=== PATIENT | female | born 1985 | race Two or more races ===

== ENCOUNTER 2016-08-28 23:49 | Inpatient (IN) | payer OTHER, MEDICAID ==
[~2016-08-28 23:49] MED LIST: HYDR-3533 PO; NAPR-576 PO; TRAM50TA PO
[2016-08-28 23:55] VITALS: O2SAT 100
[2016-08-28] MEDS ORDERED: PROPOFOL 1000 MG/100 ML INJ 100 ML ONE (23:56)
[2016-08-29] VITALS (17 sets, daily range): BP systolic 99–141; BP diastolic 56–87; PULSE 92–131; RESP 16–19; TEMP 97.2–99.8; O2SAT 95–100
[2016-08-29] MEDS ORDERED: ceFAZolin 2 GM PREMIX 50 ML IV STA (00:15)
[2016-08-29 00:17] LABS: I-STAT POTASSIUM 3.4 MMOL/L (3.5-4.9)
[2016-08-29] MEDS ORDERED: DIPHTH/TETANUS/ACEL PERTUSSIS (BOOSTER) 0.5 ML VIAL/PFS IM ONE (00:17)
[2016-08-29] MEDS: SODIUM CHLOR 0.9% 1000 ML INJ 1,000 ML IV SCH ×2 (00:18→12:06)
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
[2016-08-29] MEDS ORDERED: ONDANSETRON HCL 4 MG/2 ML VIAL IV PRN ×2 (00:30→10:00)
[2016-08-29] MEDS ORDERED: Post-op Orders (for Pharmacy) MISC XX ONE (00:30)
[2016-08-29] MEDS ORDERED: NALOXONE HCL 0.4 MG/ML AMP IV PRN (00:30)
[2016-08-29] MEDS ORDERED: SODIUM CHLORIDE 0.9% FLUSH 5 ML FLUSH IVF PRN (00:30)
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
[2016-08-29 00:33] LABS: AUTOMATED NEUTROPHIL # 8.4 TH/MM3 (1.8-7.7); BASOPHIL % 0.3 % (0.0-2.0); EOSINOPHIL # 0.1 TH/MM3 (0-0.4); EOSINOPHIL % 0.7 % (0.0-4.0); HEMATOCRIT 34.2 % (35.0-46.0); HEMO FLAGS DIFF FINAL; INTERNATIONAL NORMALIZED RATIO 0.9 RATIO; LYMPH % 32.4 % (9.0-44.0); LYMPHOCYTE # 4.4 TH/MM3 (1.0-4.8); MEAN CELL VOLUME 93.9 FL (80.0-100.0); MEAN CORPUSCULAR HEMOGLOBIN 31.5 PG (27.0-34.0); MEAN CORPUSCULAR HGB CONC 33.5 % (32.0-36.0); MONO % 4.8 % (0.0-8.0); NEUT % 61.8 % (16.0-70.0); PLATELET COUNT 275 TH/MM3 (150-450); RED BLOOD COUNT 3.65 MIL/MM3 (4.00-5.30); RED CELL DISTRIBUTION WIDTH 13.3 % (11.6-17.2); WHITE BLOOD COUNT 13.5 TH/MM3 (4.0-11.0)
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
[2016-08-29 00:35] LABS: APTT (PATIENT) 18.5 SEC (24.3-30.1)
[2016-08-29] MEDS ORDERED: IOHEXOL 350 MG/ML 10 ML VIAL (for RAD DIAG) IV ONE (00:35)
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
[2016-08-29] MEDS ORDERED: ETOMIDATE 20 MG/10 ML VIAL ONE (00:55)
[2016-08-29] MEDS ORDERED: SUCCINYLCHOLINE CHLORIDE 200 MG/10 ML VIAL ONE (00:55)
[2016-08-29] MEDS ORDERED: ROCURONIUM INJ 50 MG/5 ML VIAL ONE ×2 (00:55→01:47)
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
[2016-08-29] MEDS ORDERED: PANTOPRAZOLE SODIUM 40 MG VIAL IV SCH (01:00)
[2016-08-29] MEDS ORDERED: ROCURONIUM INJ 50 MG/5 ML VIAL IV PUSH ONE (01:45)
[2016-08-29 01:57] LABS: BLOOD GAS BASE EXCESS -7.1 mmol/L (-2-2); BLOOD GAS CARBOXYHEMOGLOBIN 1.2 % (0-4); BLOOD GAS HCO3 18 mmol/L (22-26); BLOOD GAS METHEMOGLOBIN 1.2 % (0-2); BLOOD GAS O2 HGB SATURATION 97 % (90-100); BLOOD GAS PCO2 38 mmHg (38-42); BLOOD GAS PO2 249 mmHg (61-120); BLOOD GAS TOTAL HGB 12.1 G/DL (12.0-16.0); CRITICAL VALUE NO; DRAW SITE RT RADIAL; FIO2 50 %; NUMBER OF ARTERIAL PUNCTURES 1; OXYGEN DEVICE VENTILATOR; STAT NO; TEMP CORR TO 98.6; ULNAR PULSE PRESENT; VENT SETTINGS AC16/500/5PEEP
[2016-08-29] MEDS ORDERED: MIDAZOLAM HCL 5 MG/ML VIAL (1 ML) ONE (02:37)
[2016-08-29] MEDS ORDERED: MIDAZOLAM HCL 5 MG/ML VIAL (1 ML) IV ONE (02:45)
[2016-08-29] MEDS: PROPOFOL 1000 MG/100 ML INJ 100 ML IV SCH ×2 (03:16→08:02)
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
[2016-08-29] MEDS ORDERED: CHLORHEXIDINE 0.12% (ORAL KIT) 15 ML CUP MT SCH ×2 (08:00→20:00)
[2016-08-29] MEDS ORDERED: POTASSIUM CHLOR 20 MEQ PREMIX 100 ML IV PRN ×2 (08:30)
[2016-08-29] MEDS ORDERED: POTASSIUM CHLOR 40 MEQ PREMIX 100 ML IV PRN ×2 (08:30→10:00)
[2016-08-29] MEDS ORDERED: SODIUM CHLORIDE 0.9% FLUSH 5 ML FLUSH IV FLUSH PRN (08:30)
[2016-08-29] MEDS ORDERED: POTASSIUM CL 40 MEQ/30 ML LIQ UDC PO/TUBE PRN ×2 (08:30)
[2016-08-29] MEDS ORDERED: SODIUM PHOSPHATE INJ 30 MMOL in SODIUM CHLOR 0.9% 250 ML INJ 240 ML IV PRN (08:30)
[2016-08-29] MEDS ORDERED: POTASSIUM PHOSPHATE INJ 30 MMOL in SODIUM CHLOR 0.9% 250 ML INJ 250 ML IV PRN (08:30)
[2016-08-29] MEDS ORDERED: POTASSIUM PHOSPHATE MONOBASIC 500 MG TAB PO/TUBE PRN (08:30)
[2016-08-29] MEDS ORDERED: MAGNESIUM SULFATE INJ 2 GM in SODIUM CHLORIDE 0.9% INJ 96 ML IV PRN (08:30)
[2016-08-29] MEDS ORDERED: POTASSIUM PHOSPHATE MONOBASIC 500 MG TAB PO PRN (08:30)
[2016-08-29] MEDS ORDERED: RESP: ALBUTEROL 2.5 MG/IPRATROPIUM 0.5 MG NEB (PRN) INH (08:30)
[2016-08-29] MEDS ORDERED: MISCELLANEOUS NURSING INFORMATION XX SCH (08:30)
[2016-08-29] MEDS ORDERED: CHLORHEXIDINE GLUCONATE 2 % 1 PACK (2 CLOTHS) TOP PRN (08:30)
[2016-08-29] MEDS ORDERED: MAGNESIUM SULFATE INJ 4 GM in SODIUM CHLORIDE 0.9% INJ 92 ML IV PRN (08:30)
[2016-08-29] MEDS ORDERED: MAGNESIUM OXIDE 400 MG TAB PO PRN (08:30)
[2016-08-29] MEDS ORDERED: SODIUM CHLORIDE 0.9% FLUSH 5 ML FLUSH IVF SCH (09:00)
[2016-08-29 09:10] LABS: BLOOD GAS BASE EXCESS -6.5 mmol/L (-2-2); BLOOD GAS CARBOXYHEMOGLOBIN 0.9 % (0-4); BLOOD GAS HCO3 18 mmol/L (22-26); BLOOD GAS METHEMOGLOBIN 1.2 % (0-2); BLOOD GAS O2 HGB SATURATION 97 % (90-100); BLOOD GAS OXYGEN CONTENT 16.4 Vol % (12.0-20.0); BLOOD GAS PCO2 30 mmHg (38-42); BLOOD GAS PO2 185 mmHg (61-120); BLOOD GAS TOTAL HGB 11.8 G/DL (12.0-16.0); CRITICAL VALUE NO; DRAW SITE RT RADIAL; FIO2 35 %; NUMBER OF ARTERIAL PUNCTURES 1; OXYGEN DEVICE VENTILATOR; STAT NO; TEMP CORR TO 98.6; ULNAR PULSE PRESENT
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
[2016-08-29] MEDS ORDERED: ACETAMINOPHEN 1000 MG/100 ML VIAL IV SCH (10:00)
[2016-08-29] MEDS ORDERED: RESP: ALBUTEROL 2.5 MG/IPRATROPIUM 0.5 MG NEB (SCH) INH (10:00)
[2016-08-29] MEDS ORDERED: SENNOSIDES 8.6 MG TAB PO PRN (10:00)
[2016-08-29] MEDS: DOCUSATE SODIUM 100 MG CAP PO SCH ×2 (10:00→20:29)
[2016-08-29] MEDS ORDERED: fentaNYL DRIP 250 ML IV SCH (10:00)
[2016-08-29] MEDS ORDERED: SODIUM BICARBONATE 8.4% INJ 50 MEQ/50 ML SYR IV ONE ×2 (11:15→11:16)
[2016-08-29] MEDS ORDERED: LIDOCAINE 1%/EPINEPHrine 1:100,000 SOLN 50 ML VIAL ONE (11:19)
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
[2016-08-29] MEDS ORDERED: SODIUM BICARBONATE 8.4% INJ 50 ML ONE (11:28)
[2016-08-29 11:36] LABS: AUTOMATED NEUTROPHIL # 7.4 TH/MM3 (1.8-7.7); BASOPHIL % 0.1 % (0.0-2.0); EOSINOPHIL % 0.1 % (0.0-4.0); HEMATOCRIT 37.6 % (35.0-46.0); HEMO FLAGS DIFF FINAL; LYMPH % 4.6 % (9.0-44.0); LYMPHOCYTE # 0.4 TH/MM3 (1.0-4.8); MEAN CELL VOLUME 94.9 FL (80.0-100.0); MEAN CORPUSCULAR HEMOGLOBIN 31.5 PG (27.0-34.0); MEAN CORPUSCULAR HGB CONC 33.2 % (32.0-36.0); MONO % 6.7 % (0.0-8.0); NEUT % 88.5 % (16.0-70.0); PLATELET COUNT 194 TH/MM3 (150-450); RED BLOOD COUNT 3.96 MIL/MM3 (4.00-5.30); RED CELL DISTRIBUTION WIDTH 13.3 % (11.6-17.2); WHITE BLOOD COUNT 8.3 TH/MM3 (4.0-11.0)
[2016-08-29] MEDS ORDERED: LIDOCAINE 2%/EPINEPHrine PF 1:200,000 20ML SDV INFIL ONE (12:00)
[2016-08-29] MEDS: ARTIFICIAL TEARS OPTH SOLN 15 ML BTL EACH EYE SCH ×2 (12:05→12:08)
[2016-08-29] MEDS: SODIUM CHLORIDE 0.9% FLUSH 5 ML FLUSH IV FLUSH SCH ×2 (12:05→21:00)
[2016-08-29 12:07] LABS: BICARBONATE 21.3 MEQ/L (21.0-32.0); MAGNESIUM 1.8 MG/DL (1.5-2.5); POTASSIUM 3.7 MEQ/L (3.5-5.1)
[2016-08-29] MEDS: KETOROLAC TROMETHAMINE 30 MG/ML (IVP) VIAL IM SCH ×3 (12:49→23:42)
[2016-08-29] MEDS ORDERED: NAPR250T57 PO (14:02)
[2016-08-29] MEDS ORDERED: CYCL1TAB29 PO (14:02)
[2016-08-29] MEDS ORDERED: ALBU0.63 NEB (14:04)
[2016-08-29] MEDS: ACETAMINOPHEN/HYDROcodone 325 MG/5 MG TAB PO PRN ×2 (14:27→20:29)
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
[2016-08-29] MEDS: ENOXAPARIN SODIUM 30 MG/0.3 ML SYRINGE SQ SCH (18:30)
[2016-08-29] MEDS: REMOVE OLD NICODERM (NICOTINE) PATCH TD SCH (20:00)
[2016-08-29] MEDS: NICOTINE 21 MG/24 HR PATCH TD SCH (20:29)
[2016-08-29] MEDS: CYCLOBENZAPRINE HCL 10 MG TAB PO PRN (20:29)
[2016-08-29] MEDS: BENZOCAINE 6 MG/MENTHOL 10 MG LOZENGE SUCK-ON PRN (20:47)
[2016-08-30] VITALS: BP 119/69; PULSE 90; RESP 18; TEMP 98.8; O2SAT 98
[2016-08-30] MEDS: ACETAMINOPHEN/HYDROcodone 325 MG/5 MG TAB PO PRN ×3 (02:21→14:46)
[2016-08-30] MEDS: BENZOCAINE 6 MG/MENTHOL 10 MG LOZENGE SUCK-ON PRN (02:22)
[2016-08-30 04:00] VITALS: BP 124/66; PULSE 90; RESP 16; TEMP 97.8; O2SAT 100
[2016-08-30] MEDS ORDERED: CHLORHEXIDINE GLUCONATE 2 % 1 PACK (2 CLOTHS) TOP SCH (04:00)
[2016-08-30 05:53] LABS: AUTOMATED NEUTROPHIL # 3.3 TH/MM3 (1.8-7.7); BASOPHIL % 0.3 % (0.0-2.0); HEMATOCRIT 26.4 % (35.0-46.0); HEMO FLAGS DIFF FINAL; LYMPH % 19.4 % (9.0-44.0); LYMPHOCYTE # 0.9 TH/MM3 (1.0-4.8); MEAN CELL VOLUME 92.6 FL (80.0-100.0); MEAN CORPUSCULAR HGB CONC 34.6 % (32.0-36.0); MONO % 6.1 % (0.0-8.0); NEUT % 73.2 % (16.0-70.0); PLATELET COUNT 118 TH/MM3 (150-450); RED BLOOD COUNT 2.85 MIL/MM3 (4.00-5.30); RED CELL DISTRIBUTION WIDTH 13.2 % (11.6-17.2); WHITE BLOOD COUNT 4.5 TH/MM3 (4.0-11.0)
[2016-08-30 06:04] LABS: PROTHROMBIN TIME - PATIENT 10.7 SEC (9.8-11.6)
[2016-08-30] MEDS: CYCLOBENZAPRINE HCL 10 MG TAB PO PRN ×2 (06:06→14:46)
[2016-08-30] MEDS: KETOROLAC TROMETHAMINE 30 MG/ML (IVP) VIAL IM SCH ×3 (06:08→18:09)
[2016-08-30 06:28] LABS: INDIRECT BILIRUBIN 0.3 MG/DL (0.0-0.8); POTASSIUM 3.6 MEQ/L (3.5-5.1); TOTAL BILIRUBIN ADULT 0.4 MG/DL (0.2-1.0)
[2016-08-30 08:00] VITALS: BP 117/67; PULSE 86; RESP 20; TEMP 97.9; O2SAT 98
[2016-08-30] MEDS: ENOXAPARIN SODIUM 30 MG/0.3 ML SYRINGE SQ SCH ×2 (08:02→18:09)
--- NOTE | 2016-08-30 08:02 | RADRPT ---
EXAM DATE/TIME: 08/30/2016 07:52 [facility] COMPARISON: CHEST SINGLE AP, August 29, 2016, 3:53. INDICATIONS : Respiratory disease. MEDICAL HISTORY : None. SURGICAL HISTORY : None. ENCOUNTER: Subsequent ACUITY: 1 day PAIN SCORE: 5/10 LOCATION: Bilateral chest FINDINGS: A single view of the chest demonstrates the lungs to be symmetrically aerated without evidence of mas s, infiltrate or effusion. The cardiomediastinal contours are unremarkable. Osseous structures are intact. CONCLUSION: Normal examination. Damon Kebede MD on August 30, 2016 at 8:00 Board Certified Radiologist. This report was verified electronically.
[2016-08-30] MEDS: SODIUM CHLOR 0.9% 1000 ML INJ 1,000 ML IV SCH (08:31)
[2016-08-30] MEDS: DOCUSATE SODIUM 100 MG CAP PO SCH ×2 (08:32→19:50)
[2016-08-30] MEDS: NICOTINE 21 MG/24 HR PATCH TD SCH (08:32)
[2016-08-30] MEDS: REMOVE OLD NICODERM (NICOTINE) PATCH TD SCH (08:33)
[2016-08-30] MEDS: SODIUM CHLORIDE 0.9% FLUSH 5 ML FLUSH IV FLUSH SCH ×2 (08:33→19:50)
[2016-08-30] MEDS ORDERED: PANTOPRAZOLE SODIUM 40 MG VIAL IV SCH (09:00)
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
[2016-08-30 12:00] VITALS: BP 142/88; PULSE 70; RESP 18; TEMP 98.8; O2SAT 97
[2016-08-30] MEDS ORDERED: WALKER WHEELS/F1 MIS (12:22)
--- NOTE | 2016-08-30 12:24 | HHI.FF ---
Face to Face Verification Diagnosis: (1) Pelvic fracture (2) Closed head injury (3) Multiple contusions Physical Therapy Order: Evaluate and Treat, Improve ambulation, Strength and gait training Home Health Nursing Order: Signs/symptoms of disease process Nursing assessment with vital signs I have seen patient Gemini Webb on 08/30/16. My clinical findings support the need for the requested home health care services because: Ltd mobility - disease progression Deconditioned w/ increased weakness Limited ability to care for self High risk of falls I certify that my clinical findings support that this patient is homebound because: Post-op weakness (Post -trauma weakness.) Unsteady gait/balance Unsafe to leave home unassisted Unable to use public transportation Bere Santa Aug 30, 2016 12:24
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
[2016-08-30] MEDS ORDERED: MISC-163 (15:14)
[2016-08-30 16:00] VITALS: BP 133/82; PULSE 95; RESP 20; TEMP 96.4; O2SAT 100
--- NOTE | 2016-08-30 17:46 | EKG ---
Date Performed: 08/29/2016 Time Performed: 14:25:31 PTAGE: 30 years EKG: SINUS TACHYCARDIA ST DEVIATION AND MODERATE T-WAVE ABNORMALITY, CONSIDER ANTERIOR ISCHEMIA ABNORMAL ECG NO PREVIOUS TRACING DOCTOR: Kaycee Mena Interpretating Date/Time 08/30/2016 17:44:25
[2016-08-30] MEDS: FAMOTIDINE 20 MG TAB PO SCH (19:51)
[2016-08-30 20:00] VITALS: BP 138/71; PULSE 99; RESP 16; TEMP 98.3; O2SAT 100
[2016-08-31] VITALS: BP 125/78; PULSE 93; RESP 17; TEMP 99; O2SAT 100
[2016-08-31] MEDS: ACETAMINOPHEN/HYDROcodone 325 MG/5 MG TAB PO PRN ×3 (00:22→12:02)
[2016-08-31 04:00] VITALS: BP 130/63; PULSE 86; RESP 18; TEMP 97.5; O2SAT 100
[2016-08-31] MEDS: KETOROLAC TROMETHAMINE 30 MG/ML (IVP) VIAL IM SCH ×3 (05:54→12:01)
[2016-08-31] MEDS: ENOXAPARIN SODIUM 30 MG/0.3 ML SYRINGE SQ SCH (05:55)
[2016-08-31] MEDS: NICOTINE 21 MG/24 HR PATCH TD SCH (07:53)
[2016-08-31] MEDS: REMOVE OLD NICODERM (NICOTINE) PATCH TD SCH (07:53)
[2016-08-31] MEDS: FAMOTIDINE 20 MG TAB PO SCH (07:54)
[2016-08-31] MEDS: DOCUSATE SODIUM 100 MG CAP PO SCH (07:54)
[2016-08-31] MEDS: SODIUM CHLORIDE 0.9% FLUSH 5 ML FLUSH IV FLUSH SCH (07:54)
[2016-08-31] MEDS: CYCLOBENZAPRINE HCL 10 MG TAB PO PRN (07:55)
[2016-08-31 09:20] VITALS: BP 120/73; PULSE 86; RESP 18; TEMP 97.8; O2SAT 99
[2016-08-31] MEDS ORDERED: NORC5TAB PO (11:37)
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
== END 2016-08-31 12:52 | disposition home or self-care (01) | DRG 552 ==
LOC: NEPI 23:49 → NEDA 08-29 00:25 → MERGE 08-29 00:25 → EDBD 08-29 00:25 → N03B 08-29 00:49 → N06A 08-29 16:49
PROVIDERS: ADMIT Surgery; ATTEND Surgery
PROC: 0BH17EZ Insertion of Endotracheal Airway into Trachea, Via Natural or Artificial Opening (ICD-10-PCS; principal; 2016-08-29)
PROC: 5A1935Z Respiratory Ventilation, Less than 24 Consecutive Hours (ICD-10-PCS; 2016-08-29)
PROC: 08QNXZZ Repair Right Upper Eyelid, External Approach (ICD-10-PCS; 2016-08-29)
PROC: 0H91XZZ Drainage of Face Skin, External Approach (ICD-10-PCS; 2016-08-29)
PROC: 0T9B70Z Drainage of Bladder with Drainage Device, Via Natural or Artificial Opening (ICD-10-PCS; 2016-08-29)
DX: S32.10XA Unspecified fracture of sacrum, initial encounter for closed fracture (principal); S32.592A Other specified fracture of left pubis, initial encounter for closed fracture; S01.81XA Laceration without foreign body of other part of head, initial encounter; S01.111A Laceration without foreign body of right eyelid and periocular area, initial encounter; F10.129 Alcohol abuse with intoxication, unspecified; S00.83XA Contusion of other part of head, initial encounter; V09.20XA Pedestrian injured in traffic accident involving unspecified motor vehicles, initial encounter; Y93.01 Activity, walking, marching and hiking; Y92.9 Unspecified place or not applicable; Y90.8 Blood alcohol level of 240 mg/100 ml or more
CPT/HCPCS: 31500; 36600; 70450; 70486; 71010; 71260; 72125; 72170; 74177; 80048; 80076; 80320; 82435; 82550; 82552; 82565; 82805; 82947; 82948; 83735; 84100; 84132; 84295; 84520; 85025; 85610; 85730; 86850; 86900; 86901; 93005; 94002; 94150; 94664; 94667; 96374; 99291; C9113; G0390; J0131; J0330; J0690; J1650; J1885; J2250; J3010; J7030; Q9967

== ENCOUNTER 2016-11-26 08:06 | Emergency (ER) | payer MEDICAID, OTHER ==
[~2016-11-26] VITALS: Ht 157.5 cm; Wt 68.0 kg
[~2016-11-26 08:06] MED LIST changes: +ALBU0.63 NEB; +CYCL1TAB29 PO; +MISC-163; +NAPR250T57 PO; +NORC5TAB PO; +WALKER WHEELS/F1 MIS
[2016-11-26 08:11] VITALS: BP 109/67; PULSE 68; RESP 18; TEMP 98.2; O2SAT 100
[2016-11-26] MEDS ORDERED: PENI250T59 PO (08:25)
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
== END 2016-11-26 08:37 | disposition home or self-care (01) ==
LOC: PHEFT 08:06
DX: K04.01 Reversible pulpitis (principal)
CPT/HCPCS: 99282

== ENCOUNTER 2017-01-04 07:54 | Emergency (ER) | payer MEDICAID ==
[~2017-01-04] VITALS: Ht 157.5 cm; Wt 69.0 kg
[~2017-01-04 07:54] MED LIST changes: -CYCL1TAB29 PO; -HYDR-3533 PO; -MISC-163; -NAPR-576 PO; -NAPR250T57 PO; -NORC5TAB PO; +PENI250T59 PO; -TRAM50TA PO; -WALKER WHEELS/F1 MIS
[2017-01-04 08:05] VITALS: BP 109/71; PULSE 64; RESP 18; TEMP 98.2; O2SAT 99
[2017-01-04] MEDS ORDERED: VENTAER INH ×2 (08:19→10:06)
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
[2017-01-04] MEDS: RESP: ALBUTEROL 2.5 MG/IPRATROPIUM 0.5 MG NEB (SCH) INH (08:45)
[2017-01-04] MEDS ORDERED: predniSONE 20 MG TAB PO ONE (08:45)
[2017-01-04] MEDS ORDERED: ACETAMINOPHEN 650 MG/20.3 ML UDC PO ONE (08:45)
[2017-01-04] MEDS ORDERED: ACET500T36 PO (10:06)
[2017-01-04] MEDS ORDERED: PRED-503 PO (10:06)
--- NOTE | 2017-01-04 10:19 | RADHPO ---
EXAM DATE/TIME: 01/04/2017 09:28 [facility] COMPARISON: CHEST SINGLE AP, August 30, 2016, 7:52. INDICATIONS : Cough, short of breath, chest tightness. MEDICAL HISTORY : Asthma SURGICAL HISTORY : None. ENCOUNTER: Initial ACUITY: 3 days PAIN SCORE: 0/10 LOCATION: Bilateral chest FINDINGS: A single view of the chest demonstrates the lungs to be symmetrically aerated without evidence of mas s, infiltrate or effusion. The cardiomediastinal contours are unremarkable. Osseous structures are intact. CONCLUSION: No acute disease. Christiano Donohue MD on January 04, 2017 at 10:17 Board Certified Radiologist. This report was verified electronically.
--- NOTE | 2017-01-04 15:26 | EKG ---
Date Performed: 01/04/2017 Time Performed: 08:39:16 PTAGE: 31 years EKG: Sinus rhythm Anterior T wave changes are borderline abnormal Borderline ECG NO PREVIOUS TRACING DOCTOR: Salina Church Interpretating Date/Time 01/04/2017 15:23:34
== END 2017-01-04 10:39 | disposition home or self-care (01) ==
LOC: PHEFT 07:54
DX: J06.9 Acute upper respiratory infection, unspecified (principal); J45.909 Unspecified asthma, uncomplicated; F17.210 Nicotine dependence, cigarettes, uncomplicated; R94.31 Abnormal electrocardiogram [ECG] [EKG]
CPT/HCPCS: 71010; 87804; 93005; 94640; 94664; 99284; J7512

== ENCOUNTER 2017-02-16 08:49 | Emergency (ER) | payer MEDICAID ==
[~2017-02-16] VITALS: Ht 157.5 cm; Wt 70.0 kg
[~2017-02-16 08:49] MED LIST changes: +ACET500T36 PO; -ALBU0.63 NEB; -PENI250T59 PO; +PRED-503 PO; +VENTAER INH
[2017-02-16 08:55] VITALS: BP 116/63; PULSE 75; RESP 16; TEMP 98.5; O2SAT 99
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
== END 2017-02-16 10:26 | disposition home or self-care (01) ==
LOC: PHED 08:49 → PHEFT 10:26
DX: O99.511 Diseases of the respiratory system complicating pregnancy, first trimester (principal); J06.9 Acute upper respiratory infection, unspecified; R05 Cough; Z87.891 Personal history of nicotine dependence; Z3A.01 Less than 8 weeks gestation of pregnancy
CPT/HCPCS: 99282

== ENCOUNTER 2017-02-20 11:22 | Emergency (ER) | payer MEDICAID ==
[~2017-02-20] VITALS: Ht 157.5 cm; Wt 69.0 kg
[2017-02-20 11:38] VITALS: BP 124/70; PULSE 88; RESP 18; TEMP 98.3; O2SAT 99
[2017-02-20 11:55] LABS: AUTOMATED NEUTROPHIL # 5.3 TH/MM3 (1.8-7.7); BASOPHIL % 0.2 % (0.0-2.0); EOSINOPHIL # 0.1 TH/MM3 (0-0.4); HEMATOCRIT 38.4 % (35.0-46.0); HEMO FLAGS DIFF FINAL; LYMPH % 17.5 % (9.0-44.0); LYMPHOCYTE # 1.2 TH/MM3 (1.0-4.8); MEAN CELL VOLUME 90.8 FL (80.0-100.0); MEAN CORPUSCULAR HEMOGLOBIN 31.2 PG (27.0-34.0); MEAN CORPUSCULAR HGB CONC 34.4 % (32.0-36.0); MONO % 6.3 % (0.0-8.0); PLATELET COUNT 177 TH/MM3 (150-450); RED BLOOD COUNT 4.23 MIL/MM3 (4.00-5.30); RED CELL DISTRIBUTION WIDTH 12.3 % (11.6-17.2)
[2017-02-20 11:56] LABS: BLOOD, URINE LARGE (NEG); GLUCOSE,URINE NEG (NEG); KETONE, URINE NEG (NEG); NITRITE,URINE NEG (NEG)
[2017-02-20 11:57] LABS: METHOD OF COLLECTION CLEAN CATCH; URINE COLOR YELLOW (YELLW/STRAW)
[2017-02-20 12:00] LABS: COMMENT (UR) CULT NOT INDICATED; CULTURE IF INDICATED CULT NOT INDICATED; SQUAMOUS EPITHELIAL CELL URINE 0-5 /hpf (0-5); WBC, URINE 0-2 /hpf (0-5)
[2017-02-20 12:26] LABS: BETA HCG QUANT 2968 MIU/ML (0-5)
[2017-02-20 13:09] VITALS: BP 106/66; PULSE 72; RESP 18; O2SAT 99
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
[2017-02-20 14:13] VITALS: BP 119/68; PULSE 68; RESP 18; O2SAT 98
--- NOTE | 2017-02-20 14:15 | RADRPT ---
EXAM DATE/TIME: 02/20/2017 13:15 [facility] COMPARISON: No previous studies available for comparison. INDICATIONS : Heavy bleeding and pelvic pain. LAB(S): Beta-hC MEDICAL HISTORY : Asthma. Ectopic . Herniated disc. Pelvic fracture. SURGICAL HISTORY : Dilation and curettage. ENCOUNTER: Initial ACUITY: 2 days PAIN SCORE: 7/10 LOCATION: Bilateral pelvis MEASUREMENTS: TRANSVAGINAL: UTERUS: 8.1 x 6.1 x 5.4 cm ENDOMETRIAL STRIPE: 5 mm RIGHT OVARY: 3.6 x 3.3 x 2.3 cm LEFT OVARY: 2.9 x 2.1 x 1.8 cm FREE FLUID: No FINDINGS: UTERUS: There is a 0.7 x 0.3 x 0.7 cm cystic area in the endometrial cavity. There appears to be a possible y olk sac within this suggesting this represents an IUP. An embryonic pole is not seen. RIGHT OVARY: There is a 2.2 x 1.8 x 2.1 cm complex mass in the right ovary. LEFT OVARY: Ovary contains no mass or significant cystic lesion. MISCELLANEOUS: No free fluid. CONCLUSION: 1. 0.7 cm cystic area in the neutral with a possible yolk sac raising the possibility of a very early IUP. An embryonic pole is not seen. 2. Nonspecific 2.2 cm complex mass of the right adnexa likely related to the corpus luteum. Given the difficulty to absolutely confirm an IUP, an ectopic cannot be excluded. Close followup is recommende amilcar Christopher MD on February 20, 2017 at 14:08 Board Certified Radiologist. This report was verified electronically.
== END 2017-02-20 14:56 | disposition home or self-care (01) ==
LOC: PHED 11:22
DX: O20.0 Threatened abortion (principal); Z3A.01 Less than 8 weeks gestation of pregnancy
CPT/HCPCS: 76700; 76817; 81001; 84702; 84703; 85025; 86901

== ENCOUNTER 2017-02-22 09:06 | Emergency (ER) | payer MEDICAID ==
[~2017-02-22] VITALS: Ht 157.5 cm; Wt 68.0 kg
[2017-02-22 09:07] VITALS: BP 114/72; PULSE 86; RESP 20; TEMP 98.9; O2SAT 99
[2017-02-22] MEDS ORDERED: PREN29TA PO (09:20)
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
[2017-02-22 09:46] LABS: BLOOD, URINE NEG (NEG); KETONE, URINE NEG (NEG); NITRITE,URINE NEG (NEG)
[2017-02-22 10:08] LABS: GLUCOSE,URINE 1000 OR GREATER mg/dL (NEG)
[2017-02-22 10:10] LABS: URINE COLOR YELLOW (YELLW/STRAW)
[2017-02-22 10:11] LABS: RBC, URINE 0-3 /hpf (0-3); SQUAMOUS EPITHELIAL CELL URINE > 8 /hpf (0-5); WBC, URINE 0-2 /hpf (0-5)
[2017-02-22 10:12] LABS: BACTERIA, URINE OCC /hpf; COMMENT (UR) CULT NOT INDICATED; CULTURE IF INDICATED CULT NOT INDICATED
[2017-02-22 10:18] LABS: BETA HCG QUANT 6026 MIU/ML (0-5)
[2017-02-22 10:33] VITALS: BP 110/69; PULSE 88; RESP 16; O2SAT 98
--- NOTE | 2017-02-22 11:41 | RADRPT ---
EXAM DATE/TIME: 02/22/2017 10:41 [facility] COMPARISON: No previous studies available for comparison. INDICATIONS : Pelvic pain. LAB(S): Beta-hC,026 MEDICAL HISTORY : . Asthma. Ectopic . Herniated disc. Pelvic fracture. SURGICAL HISTORY : D&C. ENCOUNTER: Subsequent ACUITY: 2 days PAIN SCORE: 4/10 LOCATION: Bilateral pelvis MEASUREMENTS: UTERUS: 10.0 x 6.0 x 5.6 cm ENDOMETRIAL STRIPE: 20 mm RIGHT OVARY: 2.7 x 2.9 x 2.6 cm LEFT OVARY: 2.4 x 1.7 x 1.7 cm FREE FLUID: No FINDINGS: UTERUS: Intrauterine gestational sac is identified with average estimated gestational sac diameter of 7.8 mm which is too small for accurate dating. RIGHT OVARY: Contains a slightly greater than 2 cm complex hypoechoic area which may be corpus luteum LEFT OVARY: Ovary contains no mass or significant cystic lesion. MISCELLANEOUS: No free fluid. CONCLUSION: Early IUP Diogo Quiroz MD on February 22, 2017 at 11:36 Board Certified Radiologist. This report was verified electronically.
== END 2017-02-22 12:16 | disposition home or self-care (01) ==
LOC: PHED 09:06
DX: O20.0 Threatened abortion (principal)
CPT/HCPCS: 76700; 76817; 81001; 84702

== ENCOUNTER 2017-06-24 17:36 | Emergency (ER) | payer MEDICAID ==
[~2017-06-24 17:36] MED LIST changes: -ACET500T36 PO; -PRED-503 PO; +PREN29TA PO; -VENTAER INH
[2017-06-24] MEDS ORDERED: LACTATED RINGER'S 1000 ML INJ 1,000 ML IV SCH (18:47)
[2017-06-24] MEDS ORDERED: PROM25TA10 PO (19:00)
[2017-06-24] MEDS ORDERED: METOCLOPRAMIDE HCL 10 MG/2 ML VIAL IV PUSH ONE (19:00)
[2017-06-24] MEDS ORDERED: PROCHLORPERAZINE INJ 10 MG/2 ML VIAL IM ONE (19:00)
[2017-06-24] MEDS ORDERED: PROM1SUP7 RECTAL (19:01)
--- NOTE | 2017-06-24 19:01 | PD ---
HPI Chief Complaint Nausea vomiting dizziness, pelvic pressure Date Seen: Jun 24, 2017 Time Seen: 18:45 Travel History International Travel<30 Days: No Contact w/Intl Traveler<30Days: No Known Affected Area: No History of Present Illness HPI Patient is 31-year-old white female at 23 weeks sees Karen Dominguez for care and presents complaining of nausea and vomiting long-term which she takes vitamin B6 and Unisom for that [id number] is not taking any prescription meds. Today she started getting dizzy when she was work and being active and felt pelvic pressure and dizziness wouldn't go away and so she call the english composition instructor told her to come here. heart tones are within normal limits for 23 weeks no contractions seen Weeks Gestation: 23 Para: 1 : 7 : 4 History Obstetric History Obstetric History One vaginal delivery, 4 elective abortions, and one ectopic Past Surgical History Narrative Surgical Ectopic and D&Cs with the abortions Social History Alcohol Use: No Tobacco Use: No Substance Abuse: No Allergies-Medications (Allergen,Severity, Reaction): Coded Allergies: lactose (Unverified Allergy, Unknown, 04/12/17) latex (Unverified Allergy, Unknown, Rash, 04/12/17) Home Meds Reported Medications Vit-Iron Carbonyl ( Plus Iron 29-1 mg) 1 Tab Tab, 1 TAB PO DAILY for Nutritional Supplement, #30 TAB 0 Refills 02/22/17 Review of Systems General / Constitutional: No: Fever, Weight Gain, Chills, Other Eyes: No: Diploplia, Blurred Vision, Visual changes, Pain, Photophobia HENT: Vertigo, Lightheadedness, No: Headaches Cardiovascular: No: Irregular Rhythm, Chest Pain or Discomfort, Palpitations, Tachycardia, Syncope, Varicosities, Edema, Cyanosis Respiratory: No: Cough, Short of Breath, Other Gastrointestinal: Nausea, Vomiting, No: Diarrhea Genitourinary: No: Decreased Urinary Output, Oliguria Musculoskeletal: No: Limited ROM, Weakness, Cramping, Edema, Pain Skin: No Rash, No Itching, No Dryness, No Lumps, No Change in Pigmentation, No Change in Nails, No Alopecia, No Lesions Neurologic: No: Weakness, Dizziness, Syncope, Focal Abnormalities, Coordination Problem, Headache, Slurred Speech, Seizures Psychiatric: No: Depression, Suicidal Ideations, Homicidal Ideation Endocrine: No: Heat Intolerance, Cold Intolerance, Polydipsia, Polyuria, Other Physical Exam Narrative GENERAL: Well-nourished, well-developed patient. SKIN: Warm and dry. HEAD: Normocephalic and atraumatic. EYES: No scleral icterus. No injection or drainage. ENT: No nasal drainage noted. Mucous membranes pink. Airway patent. NECK: Supple, trachea midline. No JVD. CARDIOVASCULAR: Regular rate and rhythm without murmurs, gallops, or rubs. RESPIRATORY: Breath sounds equal bilaterally. No accessory muscle use. BREASTS: Bilateral exam showed no masses , no retractions, no nipple discharge. ABDOMEN/GI: Abdomen soft, non-tender, bowel sounds present, no rebound, no guarding Gravid to [-23] weeks size Fundal Height: [23-] GENITOURINARY: External Genitalia: intact and normal in appearance BUS glands: [-] Cervix: [post-] Dilatation: [-0] Effacement: [0-] Station: [-3] Membranes: [intact ] Uterine Contractions: [-0] FHT's: Category: [-1] Baseline: [133-] Variability: [mod-] Decels: [-0] EXTREMITIES: No cyanosis or edema. BACK: Nontender without obvious deformity. No CVA tenderness. NEUROLOGICAL: Awake and alert. Motor and sensory grossly within normal limits. Five out of 5 muscle strength in all muscle groups. Normal speech. Data Data Orders Orders Vital Signs (Adult) .ON ADMISSION (06/24/17 18:47) ^ Labor Status (06/24/17 18:47) Urinalysis - C+S If Indicated (06/24/17 18:47) Lactated Ringer's 1000 Ml Inj (Lr 1000 M (06/24/17 18:47) Metoclopramide Inj (Reglan Inj) (06/24/17 19:00) Prochlorperazine Inj (Compazine Inj) (06/24/17 19:00) Labs Urine dip on OB ED negative MDM Interpretation(s) Patient is 31-year-old white female A5 at 23 weeks with hyperemesis gravidarum and continued vomiting today as well. Also with dizziness and cramping. Heart tones within normal limits no contractions seen cervix is closed and high, urinalysis negative Plan Planned IV hydrate patient liter fluid give Reglan and Compazine IV, and a home prescription for Phenergan by mouth and rectal suppository. Also discussed diet and agrees be a bland diet and small amounts at a time. Diagnosis Diagnosis: Primary Impression: Hyperemesis gravidarum Additional Impression: 23 weeks gestation of Disposition: DISCHARGE HOME Condition: Stable Scripts Promethazine Supp (Phenergan Supp) 25 Mg Supp 25 MG RECTAL Q6H Y for NAUSEA OR VOMITING for 5 Days, #6 SUPP 0 Refills Prov: Srinivasan Salinas II, MD 06/24/17 Promethazine (Phenergan) 25 Mg Tablet 25 MG PO Q6H Y for NAUSEA OR VOMITING for 30 Days, #30 TAB 0 Refills Prov: Srinivasan Salinas II, MD 06/24/17 Srinivasan Salinas II, MD Jun 24, 2017 19:01
[2017-06-24 19:52] LABS: BACTERIA, URINE MOD /hpf; BILIRUBIN, URINE NEG (NEG); BLOOD, URINE NEG (NEG); GLUCOSE,URINE NEG (NEG); KETONE, URINE NEG (NEG); NITRITE,URINE NEG (NEG); SQUAMOUS EPITHELIAL CELL URINE 6 /hpf (0-5); URINE COLOR LIGHT-YELLOW (YELLW/STRAW); URINE LEUKOCYTE ESTERASE MOD (NEG)
== END 2017-06-24 20:00 | disposition home or self-care (01) ==
LOC: HOBED 17:36
DX: O21.0 Mild hyperemesis gravidarum (principal); R42 Dizziness and giddiness; B96.89 Other specified bacterial agents as the cause of diseases classified elsewhere; Z3A.23 23 weeks gestation of pregnancy
CPT/HCPCS: 81001; 87086; 96374; 99284; J2765

== ENCOUNTER 2017-09-09 21:29 | Emergency (ER) | payer OTHER, MEDICAID ==
[~2017-09-09] VITALS: Ht 157.5 cm; Wt 80.0 kg
[~2017-09-09 21:29] MED LIST changes: +PROM1SUP7 RECTAL; +PROM25TA10 PO
[2017-09-09 21:46] VITALS: BP 125/71; PULSE 99; RESP 18; TEMP 98.2; O2SAT 99
[2017-09-09] MEDS ORDERED: SODIUM CHLORIDE 0.9% FLUSH 10 ML FLUSH IVF PRN (22:15)
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
[2017-09-09 23:03] LABS: AUTOMATED NEUTROPHIL # 5.8 TH/MM3 (1.8-7.7); BASOPHIL % 0.2 % (0.0-2.0); EOSINOPHIL # 0.1 TH/MM3 (0-0.4); EOSINOPHIL % 0.6 % (0.0-4.0); HEMATOCRIT 29.1 % (35.0-46.0); HEMOGLOBIN 10.1 GM/DL (11.6-15.3); LYMPH % 20.7 % (9.0-44.0); LYMPHOCYTE # 1.7 TH/MM3 (1.0-4.8); MEAN CELL VOLUME 88.5 FL (80.0-100.0); MEAN CORPUSCULAR HEMOGLOBIN 30.5 PG (27.0-34.0); MEAN CORPUSCULAR HGB CONC 34.5 % (32.0-36.0); MEAN PLATELET VOLUME 8.5 FL (7.0-11.0); MONO % 7.9 % (0.0-8.0); MONOCYTE # 0.6 TH/MM3 (0-0.9); NEUT % 70.6 % (16.0-70.0); PLATELET COUNT 163 TH/MM3 (150-450); RED BLOOD COUNT 3.29 MIL/MM3 (4.00-5.30); RED CELL DISTRIBUTION WIDTH 13.7 % (11.6-17.2); WHITE BLOOD COUNT 8.2 TH/MM3 (4.0-11.0)
[2017-09-09 23:29] LABS: CALCIUM 8.9 MG/DL (8.5-10.1); CREATININE 0.44 MG/DL (0.50-1.00)
[2017-09-09 23:30] LABS: INTERNATIONAL NORMALIZED RATIO 0.9 RATIO; PROTHROMBIN TIME - PATIENT 9.2 SEC (9.8-11.6)
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
[2017-09-10 01:35] VITALS: BP 117/70; PULSE 93; RESP 15; O2SAT 99
[2017-09-10] MEDS ORDERED: ACETAMINOPHEN 325 MG TAB PO ONE (01:45)
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
== END 2017-09-10 06:29 | disposition home or self-care (01) ==
LOC: NEPC 21:29 → HOBED 09-10 06:29
DX: O99.89 Other specified diseases and conditions complicating pregnancy, childbirth and the puerperium (principal); S70.01XA Contusion of right hip, initial encounter; S86.811A Strain of other muscle(s) and tendon(s) at lower leg level, right leg, initial encounter; M51.16 Intervertebral disc disorders with radiculopathy, lumbar region; R10.30 Lower abdominal pain, unspecified; M54.2 Cervicalgia; Z87.09 Personal history of other diseases of the respiratory system; Z87.39 Personal history of other diseases of the musculoskeletal system and connective tissue; V89.2XXA Person injured in unspecified motor-vehicle accident, traffic, initial encounter; Z3A.34 34 weeks gestation of pregnancy
CPT/HCPCS: 59025; 72141; 72146; 72148; 74181; 80048; 83030; 85025; 85610; 85730; 86850; 86900; 86901

== ENCOUNTER 2017-09-19 14:14 | Emergency (ER) | payer MEDICAID ==
[2017-09-19] MEDS: LACTATED RINGER'S 1000 ML INJ 1,000 ML IV ×2 (15:08→16:17)
[2017-09-19] MEDS: TERBUTALINE INJ 1 MG/ML AMP SQ (15:09)
== END 2017-09-19 17:10 | disposition home or self-care (01) ==
LOC: HOBED 14:14
DX: O47.03 False labor before 37 completed weeks of gestation, third trimester (principal); Z3A.35 35 weeks gestation of pregnancy
CPT/HCPCS: 59025; 96361; 96372; 96374; 99284-25

== ENCOUNTER 2017-12-01 12:57 | Emergency (ER) | payer MEDICAID ==
[~2017-12-01] VITALS: Ht 157.5 cm; Wt 71.0 kg
[2017-12-01 13:02] VITALS: BP 123/61; PULSE 86; RESP 18; TEMP 98.9; O2SAT 98
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
[2017-12-01] MEDS ORDERED: NAPROXEN SODIUM 550 MG TAB PO ONE (13:30)
[2017-12-01] MEDS ORDERED: AMOXICILLIN/CLAVULANATE K 875 MG TAB PO ONE (13:30)
[2017-12-01] MEDS ORDERED: AUGM875T3 PO (13:39)
== END 2017-12-01 13:51 | disposition home or self-care (01) ==
LOC: PHEFT 12:57
DX: J40 Bronchitis, not specified as acute or chronic (principal); H92.01 Otalgia, right ear
CPT/HCPCS: 99283